=== PATIENT | female | born 1990 | race Two or more races ===

== ENCOUNTER 2016-12-02 06:34 | Emergency (ER) | payer MEDICAID ==
[2016-12-02 06:39] VITALS: TEMP 98.6
--- NOTE | 2016-12-02 06:50 | EDPHY ---
H & P Stated Complaint: vaginal bleeding 9.5 weeks Time Seen by Provider: 12/02/16 06:49 - Personal History LMP (Females 10-55): EDC: 07/03/17 Current Tetanus/Diphtheria Vaccine: Yes Current Tetanus Diphtheria and Acellular Pertussis (TDAP): Yes - Medical/Surgical History Hx Asthma: No Hx Chronic Respiratory Disease: No Hx Diabetes: No Hx Cardiac Disease: No Hx Renal Disease: No Hx Cirrhosis: No Hx Alcoholism: No Hx HIV/AIDS: No Hx Splenectomy or Spleen Trauma: No Other PMH: aboration in December 2015 - Social History Smoking Status: Never smoked Constitutional: Initial Vital Signs Temperature (C) 37.0 C 12/02/16 06:37 Heart Rate 73 12/02/16 06:37 Respiratory Rate 16 12/02/16 06:37 Blood Pressure 116/54 L 12/02/16 06:37 O2 Sat (%) 98 12/02/16 06:37 O2 Delivery Mode Room Air Allergies/Adverse Reactions: No Known Allergies Allergy (Verified 12/02/16 06:40) Home Medications: Medication Instructions Recorded Acetaminophen [Tylenol] 80 mg PO 01/15/16 Vit27&Calcium/Iron/FA 01/15/16 [] Medical Decision Making ED Course/Re-evaluation: CHIEF COMPLAINT: Vaginal bleeding in early HISTORY OF PRESENT ILLNESS: The patient is a 9-week A1 26 y/o female complaining of minor vaginal bleeding onset yesterday. She describes the bleeding as spotting yesterday that is more heavy today and now associated with mucus. She does not require a menstrual pad and has only noticed the blood when wiping. She complains of mild abdominal cramping. No other pertinent medical history. REVIEW OF SYSTEMS: A 10 point review of systems was performed and is negative with the exception of the elements mentioned in the history of present illness. PHYSICAL EXAM: HR, BP, O2 Sat, RR. Temp noted General Appearance: Alert, well hydrated, appropriate, and non-toxic appearing. Head: Atraumatic without scalp tenderness or obvious injury Eyes: Pupils equal, round, reactive to light and accommodation, EOMI, no trauma , no injection. Ears: Clear bilaterally, no perforation, normal landmarks Nose: Atraumatic, no rhinorrhea, clear. Throat: There is no erythema or exudates, no lesions, normal tonsils, mucus membranes moist. Neck: Supple, 2+ carotid upstroke, nontender, no lymphadenopathy. Respiratory: No retractions, no distress, no wheezes, and no accessory muscle use. Lungs are clear to auscultation bilaterally. Cardiovascular: Regular rate and rhythm, no murmurs, rubs, or gallops. Bilateral carotid, radial, dorsalis pedis, and posterior tibial pulses intact. Good capillary refill all extremities. Gastrointestinal: Abdomen is soft, nontender, non-distended, no masses, no rebound, no guarding, no peritoneal signs. Musculoskeletal: Normal active ROM of all extremities, atraumatic. Neurological: Alert, appropriate, and interactive. The patient has normal DTRs and non-focal cranial nerves, motor, sensory, and cerebellar exam. Skin: No rashes, good turgor, no nodules on palpation. Past medical history: A1 (spontaneous) Past surgical history: denies Family history: noncontributory Social history: Has 3 boys. . Lives in [place]. DIAGNOSTICS/PROCEDURES/CRITICAL CARE TIME: I viewed the images myself on the PACS system. DIFFERENTIAL DIAGNOSIS: The differential diagnosis for the patient's vaginal bleeding and abdominal pain included but was not limited to complication from ovarian cyst, pelvic inflammatory disease, ovarian torsion, urinary tract infection, ectopic , cholecystitis, and appendicitis. MEDICAL DECISION MAKING: The patient is a healthy 9-week 26 y/o female presenting with mild vaginal spotting and mild abdominal pain. UTI - keflex avoid risk of developing pyelonephritis that could risk US 5mm subchorionic hemorrhage, normal IUP per [facility] home with Keflex script follow up obgyn - Data Points Laboratory Results: Laboratory Results 12/02/16 07:00 12/02/16 07:00 12/02/16 12/02/16 12/02/16 07:10 07:00 07:00 WBC RBC Hgb Hct MCV MCH MCHC RDW Plt Count MPV Neut % (Auto) Lymph % (Auto) [place] % (Auto) Eos % (Auto) Baso % (Auto) Nucleat RBC Rel Count Absolute Neuts (auto) Absolute Lymphs (auto) Absolute Monos (auto) Absolute Eos (auto) Absolute Basos (auto) Absolute Nucleated RBC Immature Gran % Immature Gran # Sodium 136 mEq/L mEq/L (134-144) Potassium 4.1 mEq/L mEq/L (3.5-5.2) Chloride 106 mEq/L mEq/L (97-110) Carbon Dioxide 23 mEq/l mEq/l (22-31) Anion Gap 7 mEq/L L mEq/L (8-16) BUN 10 mg/dL mg/dL (7-23) Creatinine 0.5 mg/dL L mg/dL (0.6-1.0) Estimated GFR > 60 Glucose 84 mg/dL mg/dL (70-100) Calcium 9.1 mg/dL mg/dL (8.5-10.4) Beta HCG, Quant 360584.00 mIU/mL H mIU/mL (0-4.83) Urine Color YELLOW Urine Appearance CLEAR Urine pH 7.0 (5.0-7.5) Ur Specific [place] 1.016 (1.002-1.030) Urine Protein NEGATIVE (NEGATIVE) Urine Ketones NEGATIVE (NEGATIVE) Urine Blood 1+ H (NEGATIVE) Urine Nitrate NEGATIVE (NEGATIVE) Urine Bilirubin NEGATIVE (NEGATIVE) Urine Urobilinogen NEGATIVE EU EU (0.2-1.0) Ur Leukocyte Esterase TRACE H (NEGATIVE) Urine RBC 1-3 /hpf /hpf (0-3) Urine WBC 5-10 /hpf H /hpf (0-3) Ur Epithelial Cells TRACE /lpf /lpf (NONE-1+) Urine Bacteria TRACE /hpf H /hpf (NONE SEEN) Ur Culture Indicated? INDICATED H (NI) Urine Glucose NEGATIVE (NEGATIVE) Patient ABO/Rh A POSITIVE 12/02/16 07:00 WBC 7.53 10^3/uL 10^3/uL (3.80-9.50) RBC 4.46 10^6/uL 10^6/uL (4.18-5.33) Hgb 13.2 g/dL g/dL (12.6-16.3) Hct 38.8 % % (38.0-47.0) MCV 87.0 fL fL (81.5-99.8) MCH 29.6 pg pg (27.9-34.1) MCHC 34.0 g/dL g/dL (32.4-36.7) RDW 13.9 % % (11.5-15.2) Plt Count 203 10^3/uL 10^3/uL (150-400) MPV 11.3 fL fL (8.7-11.7) Neut % (Auto) 65.8 % % (39.3-74.2) Lymph % (Auto) 27.4 % % (15.0-45.0) Bowie % (Auto) 5.2 % % (4.5-13.0) Eos % (Auto) 0.8 % % (0.6-7.6) Baso % (Auto) 0.4 % % (0.3-1.7) Nucleat RBC Rel Count 0.0 % % (0.0-0.2) Absolute Neuts (auto) 4.96 10^3/uL 10^3/uL (1.70-6.50) Absolute Lymphs (auto) 2.06 10^3/uL 10^3/uL (1.00-3.00) Absolute Monos (auto) 0.39 10^3/uL 10^3/uL (0.30-0.80) Absolute Eos (auto) 0.06 10^3/uL 10^3/uL (0.03-0.40) Absolute Basos (auto) 0.03 10^3/uL 10^3/uL (0.02-0.10) Absolute Nucleated RBC 0.00 10^3/uL 10^3/uL (0-0.01) Immature Gran % 0.4 % % (0.0-1.1) Immature Gran # 0.03 10^3/uL 10^3/uL (0.00-0.10) Sodium Potassium Chloride Carbon Dioxide Anion Gap BUN Creatinine Estimated GFR Glucose Calcium Beta HCG, Quant Urine Color Urine Appearance Urine pH Ur Specific [place] Urine Protein Urine Ketones Urine Blood Urine Nitrate Urine Bilirubin Urine Urobilinogen Ur Leukocyte Esterase Urine RBC Urine WBC Ur Epithelial Cells Urine Bacteria Ur Culture Indicated? Urine Glucose Patient ABO/Rh Medications Given: Discontinued Medications Sodium Chloride (Ns) 1,000 mls @ 0 mls/hr IV ONCE ONE PRN Reason: Wide Open Stop: 12/02/16 06:52 Last Admin: 12/02/16 07:05 Dose: 1,000 mls Departure - Departure Disposition: Home, Routine, Self-Care Clinical Impression: UTI (urinary tract infection) Qualifiers: Urinary tract infection type: site unspecified Hematuria presence: without hematuria Qualified Code(s): N39.0 - Urinary tract infection, site not specified Condition: Good Instructions: Urinary Tract Infection in Women (ED) Additional Instructions: 1. Take Keflex as prescribed. Be sure to complete the entire prescription even if your symptoms have improved. 2. Follow up with your OBGYN in the next 2-3 days. 3. Return for any worsening of condition. Referrals: Lavinia Cota MD [Primary Care Provider] - As per Instructions Report Scribed for: Jaime Ziegler Report Scribed by: Gabriela Brown Date of Report: 12/02/16 Time of Report: 06:55
[2016-12-02] MEDS ORDERED: NS 1,000 ML IV ONE (06:51)
[2016-12-02 07:09] LABS: % IMMATURE GRANULYOCYTES 0.4 % (0.0-1.1); ABSOLUTE IMMATURE GRANULOCYTES 0.03 10^3/uL (0.00-0.10); ADD DIFF? NO; ADD MORPH? NO; ADD SCAN? NO; ATYPICAL LYMPHOCYTE FLAG 10 (0-99); FRAGMENT RBC FLAG 0 (0-99); HEMATOCRIT 38.8 % (38.0-47.0); HEMOGLOBIN 13.2 g/dL (12.6-16.3); LEFT SHIFT FLG 0 (0-99); LIPEMIA HEMOLYSIS FLAG 90 (0-99); MEAN CELL HEMOGLOBIN 29.6 pg (27.9-34.1); MEAN PLATELET VOLUME 11.3 fL (8.7-11.7); PLATELET CLUMPS FLAG 10 (0-99); PLATELET COUNT 203 10^3/uL (150-400); RED BLOOD CELL COUNT 4.46 10^6/uL (4.18-5.33); RED CELL DISTRIBUTION WIDTH 13.9 % (11.5-15.2)
[2016-12-02 07:18] LABS: COLOR YELLOW; LEUKOCYTE ESTERASE,URINE TRACE (NEGATIVE); NITRITE,URINE NEGATIVE (NEGATIVE)
[2016-12-02 07:24] LABS: ANION GAP 7 mEq/L (8-16); CALCIUM 9.1 mg/dL (8.5-10.4); CARBON DIOXIDE 23 mEq/l (22-31); CHLORIDE 106 mEq/L (97-110); CREATININE 0.5 mg/dL (0.6-1.0); GLOMERULAR FILTRATION RATE > 60; GLUCOSE 84 mg/dL (70-100); POTASSIUM 4.1 mEq/L (3.5-5.2); SODIUM 136 mEq/L (134-144)
[2016-12-02 07:29] LABS: BACTERIA TRACE /hpf (NONE SEEN)
[2016-12-02] MEDS ORDERED: CEPHALEXIN 500 MG CAP PO ONE (08:13)
[2016-12-02 08:49] VITALS: BP 112/76; PULSE 64; RESP 18; O2SAT 97
== END 2016-12-02 08:50 | disposition home or self-care (01) ==
DX: O23.41 Unspecified infection of urinary tract in pregnancy, first trimester (principal); B96.89 Other specified bacterial agents as the cause of diseases classified elsewhere; Z3A.09 9 weeks gestation of pregnancy

== ENCOUNTER 2017-05-27 16:08 | Observation (INO) | payer MEDICAID ==
--- NOTE | 2017-05-27 18:03 | GHP ---
[f rep st] HISTORY AND PHYSICAL DATE OF ADMISSION: 05/27/2017 ADMITTING DIAGNOSES: 1. Intrauterine at 34 weeks and 5 days. 2. Vaginal bleeding. HISTORY OF PRESENT ILLNESS: The patient is a 26-year-old, 5, para 3-0-1 -3, who presents at 34-5/7 weeks, with estimated due date 07/03/17, and this is by first trimester ultrasound at 6 weeks. The patient presents to labor and delivery with complaints of vaginal bleeding that she noticed this morning when she wiped. She had some pinkish, red blood on the toilet paper and this has been going on throughout the day, mostly when she wipes. She did notice a little on her underwear. Patient states she has had some mild cramping on and off throughout the day. The patient does get her care at [facility] and was seen last week, and she had an ultrasound 2 weeks ago for size greater than dates that revealed normal growth and fluid. No mention of placenta previa or any problems with the placental location. The patient states there is good movement. Last intercourse was 3 days ago. She received both her Tdap and flu vaccine during this . has been thus uncomplicated. She did have a UTI in the first trimester, and was treated with Keflex. OBSTETRICAL HISTORY: In October 2007, she had a full-term vaginal delivery at 41 weeks, a viable male infant, weighing 8 pounds 2 ounces. In October 2012, she had a full-term uncomplicated vaginal delivery, 40 weeks, viable male , 6 pounds, 7 ounces. In March 2014, she had another uncomplicated vaginal delivery at 39 and 5/7 weeks, a viable male , weighing 3828 g. In December 2015, she had a missed AB at 10 weeks 4 days, passed products on her own. GYNECOLOGICAL HISTORY: Age of menarche 12. The patient has irregular cycles. She was on control pills at conception. Last menstrual period 09/18/2016. PAST MEDICAL HISTORY: Unremarkable. PAST SURGICAL HISTORY: None. CURRENT MEDICATIONS: vitamins. ALLERGIES: None. FAMILY HISTORY: Sister with diabetes and hypertension. SOCIAL HISTORY: She is . Lives with her and three children, all boys. She denies alcohol, tobacco, or illicit drug use. REVIEW OF SYSTEMS: Ten-point review of systems is negative. Pertinent positives noted in HPI. LABORATORIES: A-positive, antibody negative. Rubella immune. Normal quad screen. HIV negative. Hepatitis B surface antigen negative. H and H stable. One-hour Glucola normal. PHYSICAL EXAMINATION: VITAL SIGNS: On admission, vital signs are stable. Patient is afebrile. GENERAL: Well-nourished, well-developed female, alert and oriented x3. No apparent distress. CARDIOVASCULAR: Regular rate and rhythm. LUNGS: Clear to auscultation bilaterally. ABDOMEN: Gravid, soft, nontender. PELVIC: On sterile speculum exam, there was no active bleeding. No blood noted in the vault. No clots. No lesions. Cervix appeared visibly closed. There was noted to be a thick cheesy discharge, consistent with yeast. EXTREMITIES: Normal to inspection, without calf tenderness. On the monitor, heart tones category 1 tracing with baseline 130 beats per minute. Positive accelerations. No decelerations. Moderate variability. On toco, there seems to be some uterine irritability, but no contractions. ASSESSMENT: The patient is a 26-year-old, 5, para 3-0-0-1-3, at 34 weeks and 5/7 days, with vaginal bleeding. 1. Admit to labor and delivery for observation. 2. Sterile speculum exam reveals yeast infection. Recommend patient take Monistat over the counter for 7 days. 3. The patient is obstetrically stable at this time. 4. heart tones category 1 tracing. 5. Plan for discharge. 6. Discharge instructions reviewed with patient. Recommend pelvic rest until seen at [facility] in 1-2 weeks. Increase p.o. fluids. labor precautions given, as well as bleeding precautions. /[id number]/MODL MTDD
== END 2017-05-27 17:15 | disposition home or self-care (01) ==
LOC: FLD 16:08
PROVIDERS: ADMIT Obstetrics & Gynecology; ATTEND Obstetrics & Gynecology
DX: O46.93 Antepartum hemorrhage, unspecified, third trimester (principal); Z3A.34 34 weeks gestation of pregnancy; B37.9 Candidiasis, unspecified
CPT/HCPCS: 59025; G0378